=== PATIENT | male | born 1980 | race Hispanic/Latino ===

== ENCOUNTER 2019-01-08 18:22 | Emergency (ER) | payer BC ==
[~2019-01-08] VITALS: Ht 170.2 cm; Wt 95.3 kg
--- OUTSIDE RECORDS SUMMARY | 2019-01-08 18:27 | XMS REPORT | Clinical Summary ---
Author Author [facility] Organization [facility] Address Unknown Phone Unavailable Care Team Providers Care Modeling Instructor Name Role Phone Rock Raman MD PCP Allergies No Known Allergies Medications End Date Status Medication Sig Dispensed Refills Start Date Active omeprazole (PRILOSEC) 20 Take 1 90 capsule 0 mg delayed release capsule by 8 capsuleIndications: mouth daily. Abdominal pain, epigastric 08/31/2018 Discontinued omeprazole (PRILOSEC) 20 Take 1 Cap by 30 Cap 0 mg delayed release mouth daily. 1 capsuleIndications: GERD Supervising (gastroesophageal reflux Physician: disease) Dr. Elissa Anderson 09/22/2018 Bismuth Subcit Take 3 120 capsule 0 U-Crpmjuoih-DBI (PYLERA) capsules by 8 140-125-125 mg delayed mouth 4 times release daily (after capsuleIndications: H. meals and pylori infection nightly) for 10 days. Active Problems Problem Noted Date History of Helicobacter infection 10/17/2018 Fatty pancreas 10/17/2018 Fatty liver 10/17/2018 Hyperlipidemia 10/17/2018 Alcohol use- willing to quit 10/17/2018 Gastroesophageal reflux disease without esophagitis 10/17/2018 Sliding hiatal hernia 10/17/2018 Encounters Care Team Description Date Type Specialty Aditi Tello MD Gastroesophageal reflux disease without esophagitis (Primary Dx); Sliding hiatal hernia; Alcohol use- willing to quit ; History of Helicobacter infection; Hyperlipidemia, unspecified hyperlipidemia type; Fatty liver; Fatty pancreas 10/17/2018 Office Visit Family Practice Aditi Tello MD Hyperlipidemia, unspecified hyperlipidemia type; Fatty liver 10/17/2018 Orders Only Family Practice 10/09/2018 Ancillary Radiology Procedure 10/09/2018 Ancillary Radiology Procedure Tricia Eubanks Interpretation 10/09/2018 Telephone Rock Raman MD Results 10/09/2018 Telephone Family Practice Krista Garg, RN Information Only 09/15/2018 Telephone Family Practice Rock Raman MD Results 09/07/2018 Telephone Family Practice Rock Raman MD Results 09/01/2018 Telephone Family Practice Rock Raman MD Physical exam, annual (Primary Dx); Need for vaccination; Abdominal pain, epigastric 08/31/2018 Office Visit Family Practice after 01/07/2018 Immunizations Name Dates Previously Given Next Due Influenza, 08/31/2018 Vaccine<FLUCELVAX>(Multi- Dose) Td <Unspecified> 11/28/2012 Family History Relation Name Status Comments Brother 4 Alive Daughter 2 Alive Father Maternal Grandfather Maternal Grandmother Mother Sister 3 Alive Social History Date Tobacco Use Types Packs/Day Years Used Never Smoker Smokeless Tobacco: Never Used Alcohol Use Drinks/Week oz/Week Comments Yes Beer Sex Assigned at Date Recorded Not on file Industry Job Start Date Occupation Not on file Not on file Not on file Travel End Travel History Travel Start No recent travel history available. Last Filed Vital Signs Time Taken Vital Sign Reading 10/17/2018 12:43 PM [facility] Blood Pressure 105/65 10/17/2018 12:43 PM [facility] Pulse 60 10/17/2018 12:43 PM [facility] Temperature 37 C (98.6 F) 10/17/2018 12:43 PM [facility] Respiratory Rate 18 - Oxygen Saturation - - Inhaled Oxygen - Concentration 10/17/2018 12:43 PM [facility] Weight 94 kg (207 lb 3.2 oz) 10/17/2018 12:43 PM [facility] Height 170.2 cm (5' 7") 10/17/2018 12:43 PM [facility] Body Mass Index 32.45 Plan of Treatment Health Maintenance Due Date Last Done Comments IMM Influenza Seasonal Completed 08/31/2018 Oct to January (>/=19 yrs) Procedures Comments Procedure Name Priority Date/Time Associated Diagnosis XRAY UPPER GI W AIR Routine 10/09/2018 Abdominal pain, CONTRAST 8:30 AM [facility] epigastric U/S ABDOMEN Routine 10/09/2018 Abdominal pain, 8:06 AM [facility] epigastric OCCULT BLOOD ICT Routine 08/31/2018 1:13 PM CDT HIV-1/HIV-2 ROUTINE Routine 08/31/2018 Physical exam, annual SCREENING 10:10 AM CDT HEPATITIS PANEL Routine 08/31/2018 Physical exam, annual 10:10 AM CDT UA CHEMISTRIES Routine 08/31/2018 Physical exam, annual 10:10 AM CDT URINE CULTURE Routine 08/31/2018 Physical exam, annual 10:10 AM CDT HEMOGLOBIN A1C Routine 08/31/2018 Physical exam, annual 10:10 AM CDT LIPID PROFILE Routine 08/31/2018 Physical exam, annual 10:10 AM CDT LIVER PROFILE Routine 08/31/2018 Physical exam, annual 10:10 AM CDT FREE T4 Routine 08/31/2018 Physical exam, annual 10:10 AM CDT TSH Routine 08/31/2018 Physical exam, annual 10:10 AM CDT CBC/DIFF Routine 08/31/2018 Physical exam, annual 10:10 AM CDT BASIC METABOLIC PANEL Routine 08/31/2018 Physical exam, annual 10:10 AM CDT H. PYLORI STOOL AG Routine 08/31/2018 Abdominal pain, 9:40 AM CDT epigastric after 01/07/2018 Results * XRAY UPPER GI W AIR CONTRAST (10/09/2018 8:30 AM [facility]) Impressions Performed At IMPRESSION: SMS 1.Moderate gastroesophageal reflux to the proximal one third of the esophagus. 2.Small sliding hiatal hernia. Dictated By: Adelia Nance MD, 10/09/2018 9:19 AM I have reviewed the study and agree with the findings in this report. Signed By: Nico Pearson MD, 10/09/2018 10:59 AM Narrative Performed At EXAM:DOUBLE CONTRAST UPPER GI SERIES SMS INDICATION:38 m with c/o epigastric burning pain for few mths COMPARISON:None available. TECHNIQUE:Effervescent granules and barium were swallowed by mouth and fluoroscopy was performed of the UGI tract and documented with spot films RADIATION DOSE: Fluoroscopy Time:0.7min Dose (Kerma) Area Product: 9.6Gycm2 Air Kerma (AK) value has been reviewed. It is below the limits set by the Radiation Protocol Committee (RPC) committee. FINDINGS: ESOPHAGUS: Motility: Within normal limits. Mucosa:Unremarkable. Distensibility:Normal. GASTROESOPHAGEAL JUNCTION:Small sliding hernia GASTROESOPHAGEAL REFLUX:Gastroesophageal reflux was observed throughout the exam and to the proximal one third of the esophagus. STOMACH:Normally distensible and demonstrates normal contours and mucosal pattern. DUODENUM: Bulb and sweep are normal. Duodenal-jejunal junction is in the normal expected position. Procedure Note Interface, Rad/Mammog In - 10/09/2018 11:04 AM [facility] EXAM: DOUBLE CONTRAST UPPER GI SERIES INDICATION: 38 m with c/o epigastric burning pain for few mths COMPARISON: None available. TECHNIQUE: Effervescent granules and barium were swallowed by mouth and fluoroscopy was performed of the UGI tract and documented with spot films RADIATION DOSE: Fluoroscopy Time: 0.7 min Dose (Kerma) Area Product: 9.6 Gycm2 Air Kerma (AK) value has been reviewed. It is below the limits set by the Radiation Protocol Committee (RPC) committee. FINDINGS: ESOPHAGUS: Motility: Within normal limits. Mucosa: Unremarkable. Distensibility: Normal. GASTROESOPHAGEAL JUNCTION: Small sliding hernia GASTROESOPHAGEAL REFLUX: Gastroesophageal reflux was observed throughout the exam and to the proximal one third of the esophagus. STOMACH: Normally distensible and demonstrates normal contours and mucosal pattern. DUODENUM: Bulb and sweep are normal. Duodenal-jejunal junction is in the normal expected position. IMPRESSION IMPRESSION: 1. Moderate gastroesophageal reflux to the proximal one third of the esophagus. 2. Small sliding hiatal hernia. Dictated By: Adelia Nance MD, 10/09/2018 9:19 AM I have reviewed the study and agree with the findings in this report. Signed By: Nico Pearson MD, 10/09/2018 10:59 AM Performing Organization Address City/State/Zipcode Phone Number SMS * U/S ABDOMEN (10/09/2018 8:06 AM [facility]) Impressions Performed At IMPRESSION: SMS 1.Increased hepatic echotexture consistent with steatosis. No hepatic mass. 2.Pancreas lipomatosis. 3.Normal gallbladder and biliary tree. No sonographic evidence of cholelithiasis. Signed By: Fina Wellington, 10/09/2018 10:44 AM Narrative Performed At HISTORY: 38 m with c/o epigastric burning pain for few mths SMS TECHNIQUE: Selected static images from complete abdominal ultrasound provided for INTERPRETATION: COMPARISON: None. FINDINGS: Pancreas: The echotexture is diffusely increased.No mass or ductal dilatation in the visualized portions. Liver:Measures 17.2 cm in sagittal plane. The echotexture is normal. No mass in the visualized portions. Portal Vein: 0.9 cm in diameter.Flow is hepatopetal. Biliary Tree: Normal Gallbladder: Present.No gallstone, mural thickening, or soft tissue mass. CBD: 0.4 cm. Right Kidney: Length is 11.8 cm. Echotexture is normal.No mass or hydronephrosis. Left Kidney: Length is 12.6 cm.Echotexture is normal. No mass or hydronephrosis. Spleen: 11.3 cm in length.No evidence for mass. Aorta: Distal Aorta: 2.5 cm. IVC: Patent No free fluid Procedure Note Interface, Rad/Mammog In - 10/09/2018 10:49 AM [facility] HISTORY: 38 m with c/o epigastric burning pain for few mths TECHNIQUE: Selected static images from complete abdominal ultrasound provided for INTERPRETATION: COMPARISON: None. FINDINGS: Pancreas: The echotexture is diffusely increased. No mass or ductal dilatation in the visualized portions. Liver: Measures 17.2 cm in sagittal plane. The echotexture is normal. No mass in the visualized portions. Portal Vein: 0.9 cm in diameter. Flow is hepatopetal. Biliary Tree: Normal Gallbladder: Present. No gallstone, mural thickening, or soft tissue mass. CBD: 0.4 cm. Right Kidney: Length is 11.8 cm. Echotexture is normal. No mass or hydronephrosis. Left Kidney: Length is 12.6 cm. Echotexture is normal. No mass or hydronephrosis. Spleen: 11.3 cm in length. No evidence for mass. Aorta: Distal Aorta: 2.5 cm. IVC: Patent No free fluid IMPRESSION IMPRESSION: 1. Increased hepatic echotexture consistent with steatosis. No hepatic mass. 2. Pancreas lipomatosis. 3. Normal gallbladder and biliary tree. No sonographic evidence of cholelithiasis. Signed By: Fina Wellington, 10/09/2018 10:44 AM Performing Organization Address [facility] Phone Number SMS * OCCULT BLOOD ICT (08/31/2018 1:13 PM CDT) Occult Blood Negative NEG [facility] ICT Performing Organization Address [facility] Phone Number [facility] * HIV-1/HIV-2 ROUTINE SCREENING (08/31/2018 10:10 AM CDT) HIV-1/HIV-2 Negative NEG [facility]IN[facility] 3 Performing Organization Address [facility] Phone Number [facility] BT [facility] 3 * HEMOGLOBIN A1C (08/31/2018 10:10 AM CDT) Hemoglobin A1c 5.8 4.3 - 6.1 % BT DIAGNOSTIC IMMUNOLOGY Est Average 119.8 mg/dL BT DIAGNOSTIC Gluc IMMUNOLOGY Specimen Blood Performing Organization Address [facility] Phone Number [facility]IS[facility] DIAGNOSTIC IMMUNOLOGY * TSH (08/31/2018 10:10 AM CDT) TSH 1.04 0.57 - 3.74 uIU/mL BT MAIN-STATION 1 Specimen Blood Performing Organization Address [facility] Phone Number [facility] BT [facility] 1 * FREE T4 (08/31/2018 10:10 AM CDT) Free T4 0.77 0.61 - 1.18 ng/dl BT [facility]IN[facility] 1 Specimen Blood Performing Organization Address [facility] Phone Number M[facility] 1 * UA CHEMISTRIES (08/31/2018 10:10 AM CDT) Color Yellow BT [facility]IN[facility] 3 Clarity Clear BT MAIN[facility] 3 Spec [place] 1.017 1.001 - 1.035 BT MAIN-STATION 3 pH 6.0 5 - 8 BT MAIN-STATION 3 Protein Negative NEG BT MAIN-STATION 3 Glucose 1+ (A) NEG BT MAIN-STATION 3 Ketone Negative NEG BT MAIN-STATION 3 Bilirubin Negative NEG BT MAIN-STATION 3 Nitrate Negative NEG BT MAIN-STATION 3 Urobilinogen <1.0 0.2 - 1.0 EU/dL BT MAIN-STATION 3 Leukocyte Negative NEG BT MAIN-STATION 3 Blood Negative NEG BT MAIN-STATION 3 RBC 1 0 - 4 /HPF BT MAIN-STATION 3 Epithelial Cell <1 /HPF BT MAIN-STATION 3 Specimen Urine Performing Organization Address [facility] Phone Number MISYS BT [facility] 3 * LIVER PROFILE (08/31/2018 10:10 AM CDT) T Protein 7.1 6.0 - 8.3 g/dL BT MAIN-STATION 1 Albumin 4.6 4.2 - 5.5 g/dL BT MAIN-STATION 1 T Bilirubin 0.9 0.2 - 1.2 mg/dL BT MAIN-STATION 1 Alk Phos 101 34 - 104 U/L BT MAIN-STATION 1 AST 24 13 - 39 U/L BT MAIN-STATION 1 ALT 37 7 - 52 U/L BT MAIN-STATION 1 D Bilirubin 0.1 0.0 - 0.2 mg/dL BT MAIN-STATION 1 Specimen Blood Performing Organization Address [facility] Phone Number MISYS BT [facility]IN-ST[facility] 1 * LIPID PROFILE (08/31/2018 10:10 AM CDT) Cholesterol 230 mg/dL BT [facility] Comment: 1 REFERENCE RANGE: Desirable: <200 mg/dL Borderline: 200-240 mg/dL High Risk: >240 mg/dL Triglyceride 193 (H) <150 mg/dL BT [facility] Comment: 1 REFERENCE RANGE: Normal: <150 mg/dL Borderline High: 150-199 mg/dL High: 200-499 mg/dL Very High: >nx=539 mg/dL HDL 40 mg/dL BT MAIN-STATION Comment: 1 Increased CHD risk: <40 mg/dL Decreased CHD risk: >60 mg/dL LDL 151 mg/dL BT MAIN-STATION Comment: 1 REFERENCE RANGE: Optimal: <100 mg/dL Near Optimal: 100-129 mg/dL Borderline High: 130-159 mg/dL High: 160-189 mg/dL Very High: >ox=478 mg/dL Specimen Blood Performing Organization Address [facility] Phone Number MISYS BT MAIN-ST[facility] 1 * HEPATITIS PANEL (08/31/2018 10:10 AM CDT) HCV IgG Negative NEG BT MAIN-STATION 3 HBsAg Negative NEG BT MAIN-STATION 3 HAV, IgM Negative NEG BT MAIN-STATION 3 HBcAb, IgM Negative NEG BT MAIN-STATION 3 Specimen Blood Performing Organization Address [facility]/Zipcode Phone Number MISYS BT MAIN-STATION 3 * URINE CULTURE (08/31/2018 10:10 AM CDT) Spec Urine [facility] Description Order Comments None [facility] Culture Resembles mixed uro-genital BT MICROBIOLOGY nnamdi Report Status Final 09/02/2018 BT MICROBIOLOGY Specimen Urine - URINE Performing Organization Address City/State/Zipcode Phone Number [facility] BT MICROBIOLOGY * CBC/DIFF (08/31/2018 10:10 AM CDT) WBC 7.3 4.5 - 12.0 K/uL BT MAIN-STATION 2 RBC 5.29 4.60 - 6.20 M/uL BT MAIN-STATION 2 Hemoglobin 16.8 14.0 - 18.0 g/dL BT MAIN-STATION 2 Hematocrit 48.3 40.0 - 54.0 % BT MAIN-STATION 2 MCV 91 82 - 92 fL BT MAIN-STATION 2 MCH 31.8 (H) 27.0 - 31.0 pg BT MAIN-STATION 2 MCHC 34.8 32.0 - 36.0 g/dL BT MAIN-STATION 2 RDW 43.5 35.1 - 43.9 fL BT MAIN-STATION 2 Platelet 286 150 - 400 K/uL BT MAIN-STATION 2 Mean Platelet 9.8 9.4 - 12.4 fL BT MAIN-STATION Volume 2 Percent NRBC 0.0 BT MAIN-STATION 2 Absolute NRBC 0.00 BT MAIN-STATION 2 Neutrophil 54.0 34.0 - 67.9 % BT MAIN-STATION 2 Lymphocyte 37.0 21.8 - 50.0 % BT MAIN-STATION 2 Monocyte 6.5 5.3 - 12.0 % BT MAIN-STATION 2 Eosinophil 1.5 0.8 - 5.0 % BT MAIN-STATION 2 Basophil 0.7 0.2 - 1.2 % BT MAIN-STATION 2 Pct Immat Gran 0.3 0.0 - 0.5 BT MAIN-STATION 2 Neutrophil, Abs 3.94 1.78 - 5.36 K/uL BT MAIN-STATION 2 Lymphocyte, Abs 2.69 1.32 - 3.57 K/uL BT MAIN-STATION 2 Monocyte, Abs 0.47 0.30 - 0.82 K/uL BT MAIN-STATION 2 Eosinophil, Abs 0.11 0.04 - 0.54 K/uL BT MAIN-STATION 2 Basophil, Abs 0.05 0.01 - 0.08 K/uL BT MAIN-STATION 2 Absol Immat 0.02 0.00 - 0.03 K/uL BT MAIN-STATION Gran 2 Specimen Blood Performing Organization Address City/State/Zipcode Phone Number [facility]ISYS BT [facility]IN-STATION 2 * BASIC METABOLIC PANEL (08/31/2018 10:10 AM CDT) CO2 26 21 - 31 mmol/L BT MAIN-STATION 1 Chloride 104 98 - 107 mmol/L BT MAIN-STATION 1 Potassium 4.2 3.5 - 5.1 mmol/L BT MAIN-STATION 1 Sodium 139 136 - 145 mmol/L BT MAIN-STATION 1 Glucose 101 70 - 110 mg/dL BT MAIN-STATION 1 Urea Nitrogen 12 7 - 25 mg/dL BT MAIN-STATION 1 Creatinine 0.80 0.7 - 1.3 mg/dL BT MAIN-STATION 1 Anion Gap 9 BT MAIN-STATION 1 Calcium 9.1 8.6 - 10.3 mg/dL BT MAIN-STATION 1 GFR, Estimated >60 mL/min/1.73 m2 BT MAIN-STATION 1 GFR, Estim, >60 mL/min/1.73 m2 BT MAIN-STATION Afr-Am 1 Specimen Blood Performing Organization Address City/State/Zipcode Phone Number MISYS BT MAIN-STATION 1 * H. PYLORI STOOL AG (08/31/2018 9:40 AM CDT) H pylori Ag Positive LABORATORY Stool Reference range: Negative [facility] (A) DOMIN[place] Specimen Stool Performing Organization Address City/State/Zipcode Phone Number [facility] [address] [place] [address] DOM[place] 145 after 01/07/2018 Insurance Type Payer Benefit Subscriber ID Effective Phone Address Plan / Dates Group [employer] [place]xx 2018- [phone] [employer]ILY 2019 [id number] PLANNING [place], [place] [id number] [employer] PLAN [employer] PLAN xxxxxxx 2018-2 [address] [place] [address]
--- OUTSIDE RECORDS SUMMARY | 2019-01-08 18:27 | XMS REPORT ---
[facility] Address Unknown Phone Unavailable Care Team Providers Care Servicing Manager Name Role Phone Unavailable Unavailable Problems This patient has no known problems. Allergies, Adverse Reactions, Alerts This patient has no known allergies or adverse reactions. Medications This patient has no known medications. Encounters Start Date/Time End Date/Time Encounter Type Admission Type [facility]ending [facility] Care Department Encounter ID 2018-11-24 00:00:00 2018-11-24 00:00:00 Outpatient [facility] [id number] 2018-10-17 14:00:14 2018-10-17 14:00:14 Outpatient [facility] [id number] 2018-10-17 12:43:28 2018-10-17 12:43:28 Outpatient [facility] [id number] 2018-10-09 07:05:34 2018-10-09 07:05:34 Outpatient [facility] [id number] 2018-10-09 07:05:32 2018-10-09 07:05:32 Outpatient [facility] [id number] 2018-10-09 00:00:00 2018-10-09 00:00:00 Outpatient [facility] [id number] 2018-09-15 00:00:00 2018-09-15 00:00:00 Outpatient [facility] [id number] 2018-09-01 00:00:00 2018-09-01 00:00:00 Outpatient [facility] [id number] 2018-08-31 10:13:21 2018-08-31 10:13:21 Outpatient [facility] [id number] 2018-08-31 08:29:12 2018-08-31 08:29:12 Outpatient [facility] [id number]
[2019-01-08] MEDS ORDERED: ORPHENADRINE CITRATE 30 MG/ML VIAL IM ONE (19:45)
[2019-01-08] MEDS ORDERED: KETOROLAC TROMETHAMINE 60 MG/2 ML VIAL IM ONE (20:00)
--- NOTE | 2019-01-08 20:33 | Diagnostic Imaging Report ---
History: Left side stiffness, bilateral finger numbness and tingling Comparison studies: None Technique: Axial images were obtained through the cervical region. Coronal and sagittal images reconstructed from the axial data. Dose modulation, iterative reconstruction, and/or weight based adjustment of the mA/kV was utilized to reduce the radiation dose to as low as reasonably achievable. Intravenous contrast: None Findings: Airway: Patent. Atlantoaxial articulation: Intact Alignment: Slight reversal of the usual lordosis, centered at C4-5, probably positional. No scoliosis. Cervicomedullary junction: No abnormalities. Patent foramen magnum. Soft tissues: No gross abnormalities. Vertebrae: No fractures, neoplasm or infection. Degenerative changes: C2-C3: Normal disc. Patent spinal canal and foramina. No disc herniation. C3-C4: Normal disc. Patent spinal canal and foramina. No disc herniation. Mild right foraminal stenosis due to mild uncovertebral arthrosis. Patent spinal canal left foramen. No disc herniation. C4-C5: Normal disc. Mild right foraminal stenosis due to mild uncoarthrosis. The spinal canal and left foramen. No disc herniation. C5-C6: Minimally degenerated disc. Mild left foraminal stenosis due to mild left uncovertebral arthrosis. Mild spinal canal stenosis due to a left asymmetric disc bulge. Patent right foramen. C6-C7: Minimally degenerated disc. Mild left foraminal stenosis due to mild left uncovertebral arthrosis. Patent spinal canal and right foramen. No disc herniation. C7-T1: No abnormalities. IMPRESSION: No acute abnormalities. Degenerative changes: 1. Mild foraminal stenosis on the right from C3 to C5 and on the left from C5 to C7 due to mild uncovertebral arthrosis. 2. Mild superimposed spinal canal stenosis at C5-C6 3. No disc herniations. Recommendation: Outpatient MRI of the cervical spine without contrast if there is need for further imaging. Signed by: Dr. Ochoa Ramos M.D. on 01/08/2019 8:30 PM
[2019-01-08 21:58] VITALS: BP 121/86
== END 2019-01-08 22:02 | disposition home or self-care (01) ==
LOC: ER 18:22
DX: M54.2 Cervicalgia (principal); M54.12 Radiculopathy, cervical region; X50.0XXA Overexertion from strenuous movement or load, initial encounter; Y99.0 Civilian activity done for income or pay
CPT/HCPCS: 72125; 99283; J1885; J2360

== ENCOUNTER → 2019-04-03 | Outpatient (CLI) | payer BC ==
--- NOTE | 2019-04-03 11:56 | Diagnostic Imaging Report ---
History: Left hand numbness Comparison studies: CT cervical spine 16/10/2019 Technique: Sagittal T1, T2 and IR, axial T2 and axial gradient echo Intravenous contrast: None Findings: Alignment: Normal lordosis. No scoliosis. Cervicomedullary junction: No abnormalities. Patent foramen magnum. Soft tissues: No T2 hyperintense inflammatory changes. Spinal cord: Increased T2 signal from C4-C5 through C5-6 more prominent on the right with mild expansion of the cord. Vertebrae: Normal in height and signal intensity. No fractures, infection or neoplasm. Degenerative changes: C2-C3: Left uncinate process hypertrophy results in moderate left foraminal narrowing without significant canal stenosis C3-C4: Asymmetric right disc osteophyte complex, bilateral uncinate process hypertrophy and ligamentum flavum thickening results in mild canal stenosis, moderate right and mild left foraminal narrowing C4-C5: Disc degeneration with loss of T2 signal. Diffuse disc osteophyte complex with superimposed central disc protrusion, bilateral uncinate process hypertrophy and ligamentum flavum thickening results in severe canal stenosis and moderate bilateral foraminal narrowing C5-C6: Disc degeneration with loss of T2 signal. Asymmetric left disc osteophyte complex, left uncinate process hypertrophy and ligamentum flavum thickening results in moderate to severe canal stenosis, mild right and severe left foraminal narrowing. C6-C7: Asymmetric left disc osteophyte complex, left uncinate process hypertrophy and ligamentum flavum thickening results in mild canal stenosis and severe left foraminal narrowing C7-T1: Patent canal and foramina IMPRESSION: 1. Severe canal stenosis at C4-C5 secondary to central disc protrusion and ligamentum flavum thickening with associated compressive cord edema at this level. 2. Moderate canal stenosis at C5-6 secondary to asymmetric left disc osteophyte complex. 3. Moderate degenerative foraminal narrowing at C3-4 on the right and C4-5 bilaterally. Severe left degenerative foraminal narrowing at C5-6 and C6-7. 4. Mild disc degeneration with loss of T2 signal from C3 through C6. The above finding was reported and acknowledged by Dr. Conklin at 11:52 AM 04/03/2019 Signed by: DR Augustin France M.D. on 04/03/2019 11:52 AM
--- NOTE | 2019-04-03 12:12 | Diagnostic Imaging Report ---
History: Left-sided numbness Comparison studies: None Technique: Sagittal, coronal and axial T2 , sagittal T1 and IR, axial spin density oblique. Intravenous contrast: None Findings: Number of lumbar vertebral bodies:5 Alignment: Normal lordosis.No scoliosis. Soft tissues: No T2 hyperintense inflammatory changes. Paraspinal muscles: No signal abnormalities. No atrophy. Lower thoracic cord:Normal in signal and morphology. The tip of the conus is at L1-L2. Cauda equina: No masses. No arachnoiditis. Vertebrae: Normal in height and signal intensity. No compression fractures, infection or neoplasm. Degenerative changes: L1-L2: No abnormalities. L2-L3: No abnormalities. L3-L4: No abnormalities. L4-L5: Disc degeneration with loss of T2 signal. Mild diffuse disc bulge without significant canal stenosis and mild bilateral foraminal narrowing. L5-S1: Disc degeneration with loss of T2 signal. Diffuse disc bulge with superimposed small central disc protrusion without significant canal stenosis or foraminal narrowing. Additional findings: None IMPRESSION: Mild disc degeneration at the lower lumbar spine without significant (moderate or severe) canal stenosis or foraminal narrowing. Signed by: DR Augustin France M.D. on 04/03/2019 12:09 PM
== END ==
LOC: MRI 08:04
PROVIDERS: ATTEND Psychiatry & Neurology Neurology
DX: R20.8 Other disturbances of skin sensation (principal); M48.02 Spinal stenosis, cervical region; M54.16 Radiculopathy, lumbar region
CPT/HCPCS: 72141; 72148

== ENCOUNTER 2019-05-25 10:00 | Outpatient (RCR) | payer BC | END 2019-05-27 | LOC: PT 10:00 | PROVIDERS: ATTEND Neurological Surgery | DX: M50.020 Cervical disc disorder with myelopathy, mid-cervical region, unspecified level (principal); M62.81 Muscle weakness (generalized); R20.2 Paresthesia of skin; M53.82 Other specified dorsopathies, cervical region ==

== ENCOUNTER 2019-06-19 09:37 | Outpatient (RCR) | payer BC | END 2019-06-27 | LOC: PT 09:37 | PROVIDERS: ATTEND Neurological Surgery | DX: M50.020 Cervical disc disorder with myelopathy, mid-cervical region, unspecified level (principal); M62.81 Muscle weakness (generalized); M53.82 Other specified dorsopathies, cervical region | CPT/HCPCS: 97139 ==